=== PATIENT | female | born 1980 | race Caucasian/White ===

== ENCOUNTER 2021-02-26 02:02 | Emergency (ER) | payer OTHER ==
[~2021-02-26] VITALS: Ht 162.6 cm; Wt 74.8 kg
--- NOTE | ~2021-02-26 | EMS ---
[facility] [address] [place] [address] EMS Patient Care Report Name: LOPEZ PENA Room #: DEP BRAD Hartley#: [id number] Admission: 02/26/21 Attend Phys: Discharge: 02/26/21 Date of : 78 Report #: [id number] THIS REPORT FOR: //name// Report Transmitted: 02/28/2021 09:17 EMS Care Summary [place], [place]/[facility] Incident [id number] @ 02/26/2021 01:38 Incident Location [address] / [place] [address] Patient LOPEZ PENA Female, 40 Years 1980 Patient Address homeless Patient History Schizophrenia,Disc Degenerations, Patient Allergies Sulfonamides allergy, Patient Medications None Reported, Chief Complaint pelvic pain Disposition Transported No Lights/[place] [facility] Reason Unknown Problem/Person Down Transported To [facility] Narrative Initially dispatched for an unknown. [place] secured the scene. Upon EMS arrival patient was found sitting on the curb, very anxious, CAOx4. Patient stated that she has had lower abdominal and vaginal pain for several days. She described the pain as "sharp". Patient was assisted into the ambulance and secured to the bench seat. she was transported to [facility] without incident. Full [address] [address] EMS Patient Care Report Name: LOPEZ PENA Room #: DEP BRAD Hartley#: [id number] Admission: 02/26/21 Attend Phys: Discharge: 02/26/21 Date of : 78 Report #: [id number] report was given to RN prior to signing this document. Initial Vitals @01:54P: 104,R: 18,BP: 96/64,Pain: 7/10,GCS: 15,SpO2: 99,Revised Trauma: 12, Assessments @01:50MENTAL:Other,SKIN:No Abnormalities,HEENT:Head/Face: No Abnormalities,Eyes: No Abnormalities,Neck/Airway: No Abnormalities,LUNG SOUNDS:ABDOMEN:PELVIS//GI:ABISAI,EXTREMITIES:Left Arm: No Abnormalities,Right Arm: No Abnormalities,Left Leg: No Abnormalities,Right Leg: No Abnormalities,PULSE:NEURO:No Abnormalities, Impression Abdominal Pain Procedures @01:50ALS AssessmentResponse: UnchangedSucceeded Timeline 01:37,Call Received 01:37,Dispatch Notified 01:38,Dispatched 01:40,En Route 01:49,On Scene 01:50,At Patient 01:50,ALS Assessment,Response: UnchangedSucceeded, 01:54,BP: 96/64 M,PULSE: 104,RR: 18 R,SPO2: 99 Ox,ETCO2: ,BG: ,PAIN: 7,GCS: 15, 01:55,Depart Scene 02:00,At Destination 02:10,Call Closed Disclaimer [email or web address] Copyright 2020 [employer] This EMS Care Summary contains data elements from the applicable legal record (which may be displayed differently). It is designed to provide pertinent information for the following purposes: continuity of care, clinical quality, and state data reporting. The complete legal record is available to ED staff and administrators of the receiving hospital in [facility]'s Patient Tracker. All data is provided "as is."
[2021-02-26 02:07] VITALS: BP 102/51
== END 2021-02-26 02:15 ==
LOC: ER 02:02
DX: R10.9 Unspecified abdominal pain (principal); Z53.21 Procedure and treatment not carried out due to patient leaving prior to being seen by health care provider